=== PATIENT | female | born 1980 | race Caucasian/White ===

== ENCOUNTER 2016-11-18 06:04 | Inpatient (IN) | payer OTHER ==
[~2016-11-18] VITALS: Ht 165.1 cm; Wt 96.3 kg
[~2016-11-18 06:04] MED LIST: AUGMENTIN875 MG PO; CARAFATE1 GM PO; CLARITIN,ALAVAR10 MG PO; CORTISPORIN-TC10 M1 LEFT EAR; FLAGYL500 MG PO; GLUCAGON1 MG IM; HUMALOG100 UNIT/1 SC; HUMALOG100 UNITS/ SC; HUMULIN 70100 UNIT/2 SC; INSULIN PUMP SCCONT; LANTUS 10100 UNITS/ SC; LANTUS 3 M100 UNITS/ SC; LISINOPRIL5 MG PO; MOTRIN IB200 MG PO; MOTRIN800 MG PO; MYCOSTATIN 100,60 ML PO; NAPROSYN500 MG PO; PHENERGAN25 MG PR; PREDNISONE20 MG PO; PROMETHAZINE HC25 M1 PO; PROTONIX40 MG PO; TRAMADOL HCL50 MG PO; TYLENOL EXTRA500 MG PO; VALIUM5 MG PO; VICODIN 5-3001 EACH PO; ZOFRAN4 MG PO
[2016-11-18 07:02] LABS: EOSINOPHIL (%) 0.3 % (0-5); HEMATOCRIT 41.9 % (36.0-46.0); IMMATURE GRANULOCYTE (%) 0.4 % (0.0-0.7); INSTRUMENT ABS NEUTROPHIL CT 8.6 K/uL; LYMPHOCYTE COUNT 1.1 K/uL (1.0-2.8); MCH 29.6 PG (29.0-34.0); MCHC 34.4 G/DL (30.0-36.0); MCV 86.2 FL (83-99); MONOCYTE (%) 4.1 % (3-12); MONOCYTE COUNT 0.4 K/uL (0-0.8); NEUTROPHIL (%) 84.4 % (45-76); NEUTROPHIL COUNT 8.6 K/uL (1.8-6.4); PLATELET COUNT 216 K/uL (156-360); RBC DIS.WIDTH-CV 12.5 % (11.8-14.6); RBC DIS.WIDTH-SD 39.3 % (39-53); RED BLOOD COUNT 4.86 M/uL (3.80-5.20); WHITE BLOOD COUNT 10.2 K/uL (4.1-10.2)
[2016-11-18 07:47] LABS: ANION GAP 13 MEQ/L (2-14); CHLORIDE 106 MEQ/L (99-109); GFR ESTIMATE (CALCULATED) > 59 mL/min/; GLUCOSE 293 mg/dL (70-99); POTASSIUM 4.4 MEQ/L (3.7-5.4); SAMPLE HEMOLYSIS CHECK 2; SAMPLE ICTERIC CHECK 0; SAMPLE LIPEMIA CHECK 0; SODIUM 139 MEQ/L (136-147); UREA NITROGEN (BUN) 13 mg/dL (9-23)
[2016-11-18 07:57] LABS: ADD MIUA? NO; BILIRUBIN NEGATIVE; BLOOD NEGATIVE; COLOR STRAW ((YELLOW)); GLUCOSE (STRIP) >=500; KETONES 20; LEUKOCYTES NEGATIVE; NITRITE NEGATIVE; PROTEIN (STRIP) NEGATIVE; SPECIFIC GRAVITY 1.014 (1.000-1.030); UCUL ADDED? NO; UROBILINOGEN 0.2 MG/DL (0.2-1.0)
[2016-11-18 08:00] LABS: INTERNAL CONTROL VALID? YES
[2016-11-18 15:02] LABS: POINT-OF-CARE METER ID UU13113702
[2016-11-18 15:12] LABS: Estimated Average Glucose 151 mg/dL (70-123); HEMOGLOBIN A1c (GLYCOHEMOGLOB) 6.9 % HGB (Below 5.7)
[2016-11-18 15:13] LABS: TROP-I INTERPRETATION NEGATIVE; TROPONIN-I < 0.01 ng/mL (0.0-0.30)
[2016-11-18 15:15] VITALS: BP 153/85
[2016-11-18 17:06] LABS: POINT-OF-CARE METER ID UU13113831
[2016-11-18 21:42] LABS: TROP-I INTERPRETATION NEGATIVE; TROPONIN-I < 0.01 ng/mL (0.0-0.30)
[2016-11-19 00:13] VITALS: BP 118/64
[2016-11-19 00:42] LABS: POINT-OF-CARE METER ID UU13113831
[2016-11-19 02:31] LABS: TROP-I INTERPRETATION NEGATIVE; TROPONIN-I < 0.01 ng/mL (0.0-0.30)
[2016-11-19 04:09] VITALS: BP 155/80
[2016-11-19 04:13] LABS: POINT-OF-CARE METER ID UU13113700
[2016-11-19 07:26] LABS: CHLORIDE 108 mEq/L (99-109); POTASSIUM 3.9 mEq/L (3.7-5.4); SODIUM 140 mEq/L (136-147)
[2016-11-19 07:27] LABS: GLUCOSE 351 mg/dL (70-99)
[2016-11-19 07:29] LABS: ANION GAP 18 MEQ/L (2-14)
[2016-11-19 07:31] LABS: GFR ESTIMATE (CALCULATED) > 59 mL/min/
[2016-11-19 07:32] LABS: UREA NITROGEN (BUN) 16 mg/dL (9-23)
[2016-11-19 08:05] VITALS: BP 159/80
[2016-11-19 08:15] LABS: POINT-OF-CARE METER ID UU13113700
[2016-11-19 09:56] LABS: ANION GAP 14 MEQ/L (2-14); CHLORIDE 110 MEQ/L (99-109); GFR ESTIMATE (CALCULATED) > 59 mL/min/; GLUCOSE 246 mg/dL (70-99); POTASSIUM 3.7 MEQ/L (3.7-5.4); SAMPLE HEMOLYSIS CHECK 0; SAMPLE ICTERIC CHECK 0; SAMPLE LIPEMIA CHECK 0; SODIUM 141 MEQ/L (136-147); UREA NITROGEN (BUN) 16 mg/dL (9-23)
[2016-11-19 11:32] VITALS: BP 130/78
[2016-11-19 12:13] LABS: POINT-OF-CARE METER ID UU13113700
[2016-11-19 15:55] VITALS: BP 152/85
[2016-11-19 16:14] LABS: POINT-OF-CARE METER ID UU13113700
[2016-11-19 19:00] VITALS: BP 170/90
[2016-11-19 22:13] LABS: POINT-OF-CARE METER ID UU13113700
[2016-11-20] VITALS (7 sets, daily range): BP systolic 156–182; BP diastolic 84–97
[2016-11-20 08:34] LABS: ANION GAP 6 MEQ/L (2-14); CHLORIDE 109 MEQ/L (99-109); GFR ESTIMATE (CALCULATED) > 59 mL/min/; GLUCOSE 134 mg/dL (70-99); POTASSIUM 3.4 MEQ/L (3.7-5.4); SAMPLE HEMOLYSIS CHECK 0; SAMPLE ICTERIC CHECK 0; SAMPLE LIPEMIA CHECK 0; SODIUM 138 MEQ/L (136-147); UREA NITROGEN (BUN) 9 mg/dL (9-23)
[2016-11-20 12:16] LABS: POINT-OF-CARE METER ID UU14162508
[2016-11-21 00:29] VITALS: BP 173/96
[2016-11-21 03:44] VITALS: BP 162/98
[2016-11-21 06:22] LABS: POINT-OF-CARE METER ID UU14162508
[2016-11-21 07:09] LABS: ANION GAP 10 MEQ/L (2-14); CHLORIDE 102 MEQ/L (99-109); GFR ESTIMATE (CALCULATED) > 59 mL/min/; SAMPLE HEMOLYSIS CHECK 0; SAMPLE ICTERIC CHECK 0; SAMPLE LIPEMIA CHECK 0; SODIUM 137 MEQ/L (136-147); UREA NITROGEN (BUN) 6 mg/dL (9-23)
[2016-11-21 07:10] LABS: GLUCOSE 80 mg/dL (70-99)
[2016-11-21 07:30] VITALS: BP 185/97
[2016-11-21 12:04] LABS: POINT-OF-CARE METER ID UU14162508
[2016-11-21 12:32] VITALS: BP 182/98
[2016-11-21 13:15] VITALS: BP 137/77
[2016-11-21 13:21] LABS: POINT-OF-CARE METER ID UU14162508
[2016-11-21 16:17] VITALS: BP 153/86
[2016-11-21 16:22] LABS: POINT-OF-CARE METER ID UU14162508
[2016-11-21 21:51] LABS: POINT-OF-CARE METER ID UU14162508
[2016-11-22 00:15] VITALS: BP 139/67
[2016-11-22 06:38] LABS: POINT-OF-CARE METER ID UU14162508
[2016-11-22 07:04] LABS: HEMATOCRIT 38.6 % (36.0-46.0); MCHC 35.8 G/DL (30.0-36.0); MCV 83.9 FL (83-99); MEAN PLAT.VOLUME 10.5 uM^3 (9.5-12.4); PLATELET COUNT 230 K/uL (156-360); RBC DIS.WIDTH-CV 12.2 % (11.8-14.6); RBC DIS.WIDTH-SD 36.9 % (39-53); WHITE BLOOD COUNT 7.9 K/uL (4.1-10.2)
[2016-11-22 07:26] LABS: ANION GAP 11 MEQ/L (2-14); CHLORIDE 102 MEQ/L (99-109); GFR ESTIMATE (CALCULATED) > 59 mL/min/; GLUCOSE 96 mg/dL (70-99); POTASSIUM 3.4 MEQ/L (3.7-5.4); SAMPLE HEMOLYSIS CHECK 0; SAMPLE ICTERIC CHECK 0; SAMPLE LIPEMIA CHECK 0; SODIUM 138 MEQ/L (136-147); UREA NITROGEN (BUN) 7 mg/dL (9-23)
[2016-11-22 07:48] VITALS: BP 157/84
[2016-11-22 12:03] LABS: POINT-OF-CARE METER ID UU14162508
[2016-11-22 16:05] LABS: POINT-OF-CARE METER ID UU14162508
[2016-11-22 16:09] VITALS: BP 173/91
[2016-11-22 21:21] LABS: POINT-OF-CARE METER ID UU14162508
[2016-11-23 00:32] VITALS: BP 149/73
[2016-11-23 06:21] LABS: POINT-OF-CARE METER ID UU14162508
[2016-11-23 07:31] LABS: ANION GAP 12 MEQ/L (2-14); CHLORIDE 101 MEQ/L (99-109); GFR ESTIMATE (CALCULATED) > 59 mL/min/; GLUCOSE 122 mg/dL (70-99); POTASSIUM 3.5 MEQ/L (3.7-5.4); SAMPLE HEMOLYSIS CHECK 0; SAMPLE ICTERIC CHECK 0; SAMPLE LIPEMIA CHECK 0; SODIUM 138 MEQ/L (136-147); UREA NITROGEN (BUN) 6 mg/dL (9-23)
[2016-11-23 07:32] VITALS: BP 162/88
[2016-11-23] MEDS ORDERED: METOCLOPRAMIDE10 MG PO (10:38)
[2016-11-23] MEDS ORDERED: PHENERGAN25 MG PR (10:38)
== END 2016-11-23 12:36 | disposition home or self-care (01) | DRG 74 ==
LOC: EME 06:04 → EDOF 14:02 → 5WEST 15:05 → 2EAST 11-20 09:07
PROVIDERS: Emergency Medicine; Family Medicine; Hospitalist; Internal Medicine; Nurse Practitioner Family; Student in an Organized Health Care Education/Training Program
DX: E10.43 Type 1 diabetes mellitus with diabetic autonomic (poly)neuropathy (principal); K31.84 Gastroparesis; E10.65 Type 1 diabetes mellitus with hyperglycemia; E87.6 Hypokalemia; F31.9 Bipolar disorder, unspecified; K21.9 Gastro-esophageal reflux disease without esophagitis; Z96.41 Presence of insulin pump (external) (internal); Z79.4 Long term (current) use of insulin; Z87.891 Personal history of nicotine dependence; Z91.040 Latex allergy status
CPT/HCPCS: 74000; 78264; 80048; 80048 91; 81003; 82948; 83036; 84484; 84702; 84703; 85025; 85027; 99281; 99285; A9541; G0378; J0360; J0780; J1650; J1815; J2405; J2765; J3480; J7030; J7040; S0028

== ENCOUNTER 2017-02-06 18:29 | Observation (INO) | payer OTHER ==
[~2017-02-06] VITALS: Ht 165.1 cm; Wt 94.6 kg
[~2017-02-06 18:29] MED LIST changes: +METOCLOPRAMIDE10 MG PO
[2017-02-06 18:52] LABS: POINT-OF-CARE METER ID UU13113778
[2017-02-06 20:00] LABS: HEMATOCRIT 39.8 % (36.0-46.0); MCH 29.6 PG (29.0-34.0); MCHC 33.9 G/DL (30.0-36.0); MCV 87.3 FL (83-99); MEAN PLAT.VOLUME 10.7 uM^3 (9.5-12.4); PLATELET COUNT 232 K/uL (156-360); RBC DIS.WIDTH-CV 12.5 % (11.8-14.6); RBC DIS.WIDTH-SD 40.2 % (39-53); RED BLOOD COUNT 4.56 M/uL (3.80-5.20); WHITE BLOOD COUNT 10.9 K/uL (4.1-10.2)
[2017-02-06 20:12] LABS: CHLORIDE 104 mEq/L (99-109); SODIUM 137 mEq/L (136-147)
[2017-02-06 20:14] LABS: GLUCOSE 413 mg/dL (70-99)
[2017-02-06 20:15] LABS: ANION GAP 16 MEQ/L (2-14)
[2017-02-06 20:16] LABS: TOTAL BILIRUBIN 0.8 mg/dL (0.0-1.0)
[2017-02-06 20:17] LABS: ALKALINE PHOSPHATASE 104 IU/L (3-129)
[2017-02-06 20:18] LABS: GFR ESTIMATE (CALCULATED) > 59 mL/min/
[2017-02-06 20:19] LABS: UREA NITROGEN (BUN) 9 mg/dL (9-23)
[2017-02-06 20:21] LABS: LIPASE < 1 U/L (1.0-51.0)
[2017-02-06 20:27] LABS: QUANTITATIVE HCG < 4.0 MIU/ML
[2017-02-06 20:37] LABS: CARBON DIOXIDE (BICARBONATE) 21.1 MEQ/L (20-31)
[2017-02-06 22:43] LABS: POINT-OF-CARE METER ID UU13113800
[2017-02-07 03:23] VITALS: BP 119/68
[2017-02-07 07:26] LABS: POINT-OF-CARE METER ID UU14208750
[2017-02-07 07:48] VITALS: BP 135/74
[2017-02-07 10:35] LABS: ADD MIUA? NO; BILIRUBIN NEGATIVE; BLOOD NEGATIVE; COLOR YELLOW ((YELLOW)); GLUCOSE (STRIP) >=500; KETONES 20; LEUKOCYTES NEGATIVE; NITRITE NEGATIVE; PROTEIN (STRIP) NEGATIVE; SPECIFIC GRAVITY 1.037 (1.000-1.030); UCUL ADDED? NO; UROBILINOGEN 0.2 MG/DL (0.2-1.0)
[2017-02-08] MEDS ORDERED: REGLAN10 MG PO (11:18)
== END 2017-02-07 12:27 | disposition home or self-care (01) ==
LOC: EME 18:29 → EDOF 02-07 01:27 → ENRESERV 02-07 01:29 → 2EAST 02-07 02:41
PROVIDERS: Hospitalist; Physician Assistant Medical
DX: E10.10 Type 1 diabetes mellitus with ketoacidosis without coma (principal); Z79.4 Long term (current) use of insulin; Z96.41 Presence of insulin pump (external) (internal); E87.4 Mixed disorder of acid-base balance; E66.01 Morbid (severe) obesity due to excess calories; Z68.34 Body mass index [BMI] 34.0-34.9, adult; Z91.040 Latex allergy status; Z91.018 Allergy to other foods; Z87.891 Personal history of nicotine dependence
CPT/HCPCS: 80053; 81003; 82010; 82803; 82948; 83690; 84702; 85027; 99281; 99285; C9113; G0378; J1170; J1630; J1650; J2405; J2765; J7030; S0028

== ENCOUNTER 2017-02-08 09:07 | Emergency (ER) | payer OTHER ==
[~2017-02-08] VITALS: Ht 165.1 cm; Wt 96.3 kg
[2017-02-08 09:54] LABS: HEMATOCRIT 37.5 % (36.0-46.0); MCH 29.7 PG (29.0-34.0); MCHC 34.4 G/DL (30.0-36.0); MCV 86.4 FL (83-99); MEAN PLAT.VOLUME 10.7 uM^3 (9.5-12.4); PLATELET COUNT 196 K/uL (156-360); RBC DIS.WIDTH-CV 12.5 % (11.8-14.6); RBC DIS.WIDTH-SD 39.6 % (39-53); RED BLOOD COUNT 4.34 M/uL (3.80-5.20); WHITE BLOOD COUNT 9.1 K/uL (4.1-10.2)
[2017-02-08 10:03] LABS: CHLORIDE 108 mEq/L (99-109); POTASSIUM 3.4 mEq/L (3.7-5.4); SODIUM 140 mEq/L (136-147)
[2017-02-08 10:06] LABS: GLUCOSE 234 mg/dL (70-99)
[2017-02-08 10:07] LABS: ANION GAP 13 MEQ/L (2-14)
[2017-02-08 10:09] LABS: ALKALINE PHOSPHATASE 88 IU/L (3-129); GFR ESTIMATE (CALCULATED) > 59 mL/min/
[2017-02-08 10:10] LABS: UREA NITROGEN (BUN) 8 mg/dL (9-23)
[2017-02-08 10:12] LABS: TOTAL BILIRUBIN 0.5 mg/dL (0.0-1.0)
[2017-02-08 10:13] LABS: LIPASE 4 U/L (1.0-51.0)
[2017-02-08 10:19] LABS: QUANTITATIVE HCG < 4.0 MIU/ML
[2017-02-08] MEDS ORDERED: REGLAN10 MG PO (11:18)
[2017-02-08 11:45] LABS: ADD MIUA? NO; BILIRUBIN NEGATIVE; BLOOD NEGATIVE; COLOR STRAW ((YELLOW)); GLUCOSE (STRIP) >=500; KETONES 20; LEUKOCYTES NEGATIVE; NITRITE NEGATIVE; PROTEIN (STRIP) NEGATIVE; SPECIFIC GRAVITY 1.011 (1.000-1.030); UCUL ADDED? NO; UROBILINOGEN 0.2 MG/DL (0.2-1.0)
[2017-02-08 14:20] VITALS: BP 169/120
== END 2017-02-08 14:21 | disposition home or self-care (01) ==
LOC: EME 09:07
DX: R11.2 Nausea with vomiting, unspecified (principal); K21.9 Gastro-esophageal reflux disease without esophagitis; E11.9 Type 2 diabetes mellitus without complications; Z96.41 Presence of insulin pump (external) (internal); Z87.891 Personal history of nicotine dependence
CPT/HCPCS: 80053; 81003; 83690; 84702; 85027; 99281; 99284; J1630; J2550; J7030

== ENCOUNTER 2017-10-15 23:00 | Observation (INO) | payer OTHER ==
[~2017-10-15] VITALS: Ht 165.1 cm; Wt 93.0 kg
[~2017-10-15 23:00] MED LIST changes: +REGLAN10 MG PO
[2017-10-16 00:09] LABS: HEMATOCRIT 44.7 % (36.0-46.0); HEMOGLOBIN 15.5 G/DL (11.9-15.5); MCH 29.8 PG (29.0-34.0); MCHC 34.7 G/DL (30.0-36.0); PLATELET COUNT 271 K/uL (156-360); RBC DIS.WIDTH-CV 12.4 % (11.8-14.6); RBC DIS.WIDTH-SD 39.2 % (39-53); WHITE BLOOD COUNT 15.7 K/uL (4.1-10.2)
[2017-10-16 00:10] LABS: CARBON DIOXIDE (BICARBONATE) 21.9 MEQ/L (20-31)
[2017-10-16] MEDS ORDERED: ZOFRAN ODT4 MG PO (00:18)
[2017-10-16 00:31] LABS: CHLORIDE 101 mEq/L (99-109); POTASSIUM 4.4 mEq/L (3.7-5.4); SODIUM 137 mEq/L (136-147)
[2017-10-16 00:32] LABS: GLUCOSE 395 mg/dL (70-99)
[2017-10-16 00:36] LABS: CREATININE 1.1 mg/dL (0.6-1.3); GFR ESTIMATE (CALCULATED) > 59 mL/min/
[2017-10-16 00:37] LABS: UREA NITROGEN (BUN) 12 mg/dL (9-23)
[2017-10-16] MEDS ORDERED: CETIRIZINE HCL10 M2 PO (01:55)
[2017-10-16] MEDS ORDERED: HUMALOG100 UNIT/1 SC (01:55)
[2017-10-16 01:56] LABS: APPEARANCE CLEAR ((CLEAR)); BILIRUBIN NEGATIVE; BLOOD NEGATIVE; COLOR STRAW ((YELLOW)); GLUCOSE (STRIP) >=500; KETONES 80; LEUKOCYTES NEGATIVE; NITRITE NEGATIVE; PROTEIN (STRIP) NEGATIVE; SPECIFIC GRAVITY 1.024 (1.000-1.030); UCUL ADDED? NO; UROBILINOGEN 0.2 MG/DL (0.2-1.0)
[2017-10-16] MEDS ORDERED: GABAPENTIN100 MG PO (01:56)
[2017-10-16 02:06] LABS: SALICYLATE < 3 MG/DL (15-30)
[2017-10-16 05:20] VITALS: BP 157/72
[2017-10-16 08:04] VITALS: BP 160/85
[2017-10-16 08:51] LABS: HEMATOCRIT 39.9 % (36.0-46.0); HEMOGLOBIN 13.5 G/DL (11.9-15.5); MCH 29.7 PG (29.0-34.0); MCHC 33.8 G/DL (30.0-36.0); MCV 87.9 FL (83-99); PLATELET COUNT 215 K/uL (156-360); RBC DIS.WIDTH-CV 12.7 % (11.8-14.6); RBC DIS.WIDTH-SD 40.9 % (39-53); RED BLOOD COUNT 4.54 M/uL (3.80-5.20); WHITE BLOOD COUNT 11.8 K/uL (4.1-10.2)
[2017-10-16 09:34] LABS: ALBUMIN 4.3 G/DL (3.2-4.8); ALKALINE PHOSPHATASE 95 IU/L (3-129); ALT (GPT) 10 IU/L (3-49); AST (GOT) 9 IU/L (2-34); CHLORIDE 105 MEQ/L (99-109); CREATININE 0.8 MG/DL (0.6-1.3); DIRECT BILIRUBIN 0.2 mg/dL (0.0-0.3); GFR ESTIMATE (CALCULATED) > 59 mL/min/; GLUCOSE 257 mg/dL (70-99); LIPASE < 3.0 U/L (1.0-51.0); POTASSIUM 3.8 MEQ/L (3.7-5.4); SODIUM 139 MEQ/L (136-147); TOTAL BILIRUBIN 0.7 MG/DL (0.0-1.0); TOTAL PROTEIN 6.8 G/DL (6.4-8.3); UREA NITROGEN (BUN) 10 mg/dL (9-23)
[2017-10-16 11:50] VITALS: BP 120/61
[2017-10-16 15:21] VITALS: BP 127/73
== END 2017-10-16 19:04 | disposition home or self-care (01) ==
LOC: EME 23:00 → EDOF 10-16 02:41 → ENRESERV 10-16 02:44 → 4SOUTH 10-16 05:04
PROVIDERS: Hospitalist; Physician Assistant
DX: R11.2 Nausea with vomiting, unspecified (principal); E10.65 Type 1 diabetes mellitus with hyperglycemia; E10.43 Type 1 diabetes mellitus with diabetic autonomic (poly)neuropathy; K31.84 Gastroparesis; E66.01 Morbid (severe) obesity due to excess calories; Z68.34 Body mass index [BMI] 34.0-34.9, adult; J02.0 Streptococcal pharyngitis; Z91.040 Latex allergy status; Z91.018 Allergy to other foods
CPT/HCPCS: 74176; 80048; 80076; 81003; 82010; 82803; 82948; 83690; 85027; 87651 90; 99281; 99285; C9113; G0378; G0480; J1630; J1650; J2405; J2765; J3010; J7030

== ENCOUNTER 2018-01-18 06:39 | Day surgery (SDC) | payer OTHER ==
[~2018-01-18] VITALS: Ht 165.1 cm; Wt 97.0 kg
[~2018-01-18 06:39] MED LIST changes: +CETIRIZINE HCL10 M2 PO; +GABAPENTIN100 MG PO; +ZOFRAN ODT4 MG PO
[2018-01-18 07:00] VITALS: BP 127/84
[2018-01-18 11:00] VITALS: BP 123/64
[2018-01-18 12:00] VITALS: BP 100/55; BP 124/65
[2018-01-18 13:10] VITALS: BP 114/85
== END 2018-01-18 13:25 | disposition home or self-care (01) ==
LOC: SDC 06:39
PROVIDERS: Obstetrics & Gynecology Gynecology
DX: N39.3 Stress incontinence (female) (male) (principal); E10.65 Type 1 diabetes mellitus with hyperglycemia; Z79.4 Long term (current) use of insulin; Z96.41 Presence of insulin pump (external) (internal); E66.9 Obesity, unspecified; Z68.35 Body mass index [BMI] 35.0-35.9, adult; E10.40 Type 1 diabetes mellitus with diabetic neuropathy, unspecified; E10.43 Type 1 diabetes mellitus with diabetic autonomic (poly)neuropathy; K31.84 Gastroparesis; Z91.040 Latex allergy status; Z87.891 Personal history of nicotine dependence; Z91.018 Allergy to other foods; F41.0 Panic disorder [episodic paroxysmal anxiety]
CPT/HCPCS: 82948; 87086; 93005; J0131; J0330; J0690; J2250; J2405; J2550; J2765; J3010; J7030